=== PATIENT | male | born 1955 | race Caucasian/White ===

== ENCOUNTER 2020-12-24 11:39 | Day surgery (SDC) | payer OTHER ==
[~2020-12-24] VITALS: Ht 180.3 cm; Wt 107.0 kg
--- NOTE | 2020-12-24 13:06 | NUR ---
DENTURES PLACED IN DENTURE CUP WITH PATIENT STICKER. GLASSES PLACED IN GLASSES CASE WITH PATIENT STICKER. DENTURES AND GLASSES THEN TAKEN TO PACU WITH PATIENT BELONGINGS BAG. PATIENT STICKER PLACED ON BELONGINGS BAG.
--- NOTE | 2020-12-24 14:42 | NUR ---
12/24/20 1442 Christi Mcclendon 1350 PT ARRIVED IN PACU AWAKE TALKING TO STAFF. NO C/O'S. 1410 DR AT BEDSIDE TALKING WITH PT. ALL QUESTIONS ANSWERED. 1420 DRESSED. DC INSTRUCTIONS GIVEN. LEFT VIA W/C.
--- NOTE | 2020-12-25 10:15 | PATH ---
[facility] [address], [place] [address] Signed SPECIMEN(S): A POLYP AT 90 CM SPECIMEN(S): B POLYP AT 80 CM SPECIMEN SOURCE: A. POLYP AT 90 CM B. POLYP AT 80 CM CLINICAL HISTORY: Colonoscopy. Personal history of colon polyp. Postop Dx: Colon polyps x 2, diverticulosis. MICROSCOPIC DESCRIPTION: Histologic sections of all submitted blocks are examined by light microscopy. These findings, together with the gross examination, support the pathologic diagnosis. FINAL PATHOLOGIC DIAGNOSIS: A. Colon, polyp at 90 cm, polypectomy: - Tubular adenoma. - Negative for high-grade dysplasia or malignancy. B. Colon, polyp at 80 cm, polypectomy: - Fragments of tubular adenoma. - Negative for high-grade dysplasia or malignancy. NAL:cml:C2NR GROSS DESCRIPTION: Two specimens are received in two containers, labeled "MK." A. The specimen, labeled "MK, colon polyp at 90 cm," is received in formalin and consists of four dey soft tissue fragments that measure 0.1-0.2 cm in greatest dimension. The specimen is entirely submitted in cassette (A1). B. The specimen, labeled "MK, colon polyp at 80 cm," is received in formalin and consists of one dey soft tissue fragment that measures 1.1 cm in greatest dimension. The specimen is bisected and entirely submitted in cassette (B1). JS (under the direct supervision of a pathologist) The Gross Description was prepared using a voice recognition system. The report was reviewed for accuracy; however, sound-alike word errors, addition and/or deletions may occur. If there is any question about this report, please contact Client Services. PERFORMING LABORATORY: PATIENT NAME: SOLOMON LOPEZ PATHOLOGY DATE OF : 57 REPORT #: [id number] PHYSICIAN: JENNIFER PERDOMO PCP: KYREE DAVIS REPORT IS CONFIDENTIAL AND NOT TO BE RELEASED WITHOUT AUTHORIZATION [facility] [address] [address] Signed The technical component was performed by [place] [address] (Scan Coordinator: Kailee Deluna MD; CLIA# [id number]). Professional interpretation was performed by [facility], [address] [address] (CLIA# [id number]). Diagnostician: Oanh De Paz MD Pathologist Electronically Signed 12/25/2020 Copies: ~ PATIENT NAME: SOLOMON LOPEZ PATHOLOGY DATE OF : 57 REPORT #: [id number] PHYSICIAN: JENNIFER PERDOMO PCP: KYREE DAVIS REPORT IS CONFIDENTIAL AND NOT TO BE RELEASED WITHOUT AUTHORIZATION
--- NOTE | 2020-12-27 16:26 | OR ---
[facility] [address] [place], [place] [address] Signed DATE OF OPERATION: 12/24/2020 SURGEON: Joy Comer MD PREOPERATIVE DIAGNOSIS: Surveillance colonoscopy; history of polyp of cecum 2013, Dr. Sood, [place], [place]. POSTOPERATIVE DIAGNOSES: 1. Sigmoid diverticulosis. 2. Polyps x2 at 80 and 90 cm. PROCEDURE: Total colonoscopy to cecum with cold morcellation polypectomy x1 and cold snare polypectomy x1. ANESTHESIA: Intravenous sedation; fentanyl 150 mcg and Versed 10 mg. INDICATION: This 65-year-old white man is a patient of Kyree Santamaria and has undergone colonoscopy in [address] Yair Sood in [place], [place] where a small polyp was noted of the ileocecal valve area. The patient is generally symptom-free. He is admitted at this time to undergo surveillance colonoscopy. He understands the risks of bleeding, infection, and perforation. Notably, he has no family history of colon cancer and no symptoms of bleeding diarrhea or constipation at this time. The risks of bleeding, infection, perforation have been reviewed with him related to colonoscopy. He understands and wished to proceed. FINDINGS: The prep was good. Complete colonoscopy was undertaken to the cecum without question. There was no sign of persistent or recurrent ileocecal valve polyp. He did have scattered diverticula of the sigmoid and left colon. There were two polyps, one at 80 cm. The other at 90 cm, both were excised completely. DESCRIPTION OF PROCEDURE: The patient was brought to the endoscopy suite and placed in lateral decubitus position, given intravenous sedation to the point of slurred speech and nystagmus with full cardiopulmonary monitoring. Digital rectal examination was normal. An Olympus video colonoscope was passed in the rectum and manipulated into the sigmoid Electronically Signed By: JOY COMER MD 12/27/20 1626 PATIENT NAME: SOLOMON LOPEZ OPERATIVE REPORT DATE OF : 57 REPORT #: [id number] PHYSICIAN: JOY COMER MD PCP: KYREE SANTAMARIA REPORT IS CONFIDENTIAL AND NOT TO BE RELEASED WITHOUT AUTHORIZATION [facility] [address] [place], [place] [address] Signed where numerous diverticula were noted. The scope was advanced beyond this ultimately to the cecum. The ileocecal valve and appendiceal orifice were normal. Abdominal wall stabilization was required to allow for full intubation of the cecum. Irrigation was undertaken showing no evidence of polyps of the ileocecal valve or cecum and the scope was then withdrawn. Careful withdrawal of scope showed no sign of abnormality until approximately 90 cm from the anal verge where a small very subtle polyp was noted behind the fold. This was excised with cold morcellation technique. Upon withdrawal of the scope a bit further at approximately 80 cm with a much more obvious sessile polyp, this was excised with cold snare technique completely. This was passed for pathology as well. The scope was further withdrawn. There were no other findings of concern other than diverticula of the sigmoid and left colon. Retroflexed view of the rectum showed mildly hypertrophied anal papilla, but no sign of hemorrhoidal disease or other problem. The scope was straightened, withdrawn, and removed and the patient was taken to the recovery room in good condition. CONCLUDING DIAGNOSES: 1. Polyps x2. 2. Diverticulosis. PLAN: Recommend repeat colonoscopy in 5 years or sooner if clinically indicated. Recommend high-fiber diet. He will return to the ongoing care of PEGGY Torres. MD BLANCA Mcpherson/HILTONL /[id number] cc: PEGGY Torres Copies: KYREE SANTAMARIA ~ Electronically Signed By: JOY COMER MD 12/27/20 1626 PATIENT NAME: SOLOMON LOPEZ OPERATIVE REPORT DATE OF : 57 REPORT #: [id number] PHYSICIAN: JOY COMER MD PCP: KRYEE SANTAMARIA REPORT IS CONFIDENTIAL AND NOT TO BE RELEASED WITHOUT AUTHORIZATION
== END 2020-12-24 14:20 | disposition home or self-care (01) ==
LOC: OPS 11:39 → DS 11:41 → OPS 13:15 → DS 13:15 → OPS 14:20
PROVIDERS: ATTEND Surgery
PROC: 0DBP8ZX Excision of Rectum, Via Natural or Artificial Opening Endoscopic, Diagnostic (ICD-10-PCS; principal; 2020-12-24 13:15)
DX: Z12.11 Encounter for screening for malignant neoplasm of colon (principal); K62.1 Rectal polyp; K57.30 Diverticulosis of large intestine without perforation or abscess without bleeding; I10 Essential (primary) hypertension; M51.36 Other intervertebral disc degeneration, lumbar region; F31.9 Bipolar disorder, unspecified; Z87.891 Personal history of nicotine dependence; Z86.010 Personal history of colon polyps
CPT/HCPCS: 99153; G0500; J2250; J3010; J7121